=== PATIENT | male | born 1970 | race African-American/Black ===

== ENCOUNTER 2016-10-15 15:40 | Emergency (ER) | payer MEDICARE, OTHER ==
[~2016-10-15] VITALS: Ht 180.3 cm; Wt 84.0 kg
[2016-10-15 15:42] VITALS: BP 175/84; PULSE 67; RESP 18; TEMP 98.5; O2SAT 100
[2016-10-15] MEDS ORDERED: MIRT30TA PO (17:43)
[2016-10-15] MEDS ORDERED: RISP3TAB2 PO (17:43)
[2016-10-15] MEDS ORDERED: DIVA500T3 PO (17:43)
[2016-10-15] MEDS ORDERED: SODIUM CHLORID 0.9% 500 ML INJ 500 ML IV ONE (18:45)
[2016-10-15] MEDS ORDERED: SODIUM CHLORIDE 0.9% FLUSH 10 ML FLUSH IVF PRN (18:45)
--- NOTE | 2016-10-15 18:58 | RADRPT ---
EXAM DATE/TIME: 10/15/2016 18:49 [place] COMPARISON: No previous studies available for comparison. INDICATIONS : Chest pain MEDICAL HISTORY : None. SURGICAL HISTORY : None. ENCOUNTER: Initial ACUITY: 1 day PAIN SCORE: 5/10 LOCATION: Bilateral chest FINDINGS: A single view of the chest demonstrates the lungs to be symmetrically aerated without evidence of mas s, infiltrate or effusion. The cardiomediastinal contours are unremarkable. Osseous structures are intact. CONCLUSION: No evidence of acute cardiopulmonary disease. Connor Figueroa MD on October 15, 2016 at 18:56 Board Certified Radiologist. This report was verified electronically.
[2016-10-15 19:05] VITALS: RESP 20; O2SAT 96
--- NOTE | 2016-10-15 19:16 | PD ---
Physical Exam Narrative General: The patient is a well-developed well-nourished male in no acute distress. Head and Neck exam: Head is normocephalic atraumatic. Eyes: EOMI, pupils are equal round and reactive to light. Nose: Midline septum with pink mucous membranes Mouth: Dentition unremarkable. Moist mucus membranes. Posterior oropharynx is not erythematous. No tonsillar hypertrophy. Uvula midline. Airway patent. Neck: No palpable lymphadenopathy. No nuchal rigidity. No thyromegaly. Cardiovascular: Regular rate and rhythm without murmurs, gallops, or rubs. Lungs: Clear to auscultation bilaterally. No wheezes, rhonchi, or rales. Abdomen: Soft, without tenderness to palpation in all 4 quadrants of the abdomen. No guarding, rebound, or rigidity. Normal bowel sounds are audible. Extremities: No clubbing, cyanosis, or edema. 2+ pulses in all 4 extremities. No calf tenderness on palpation. No crepitus or deformity of the extremities. Neurologic Exam: Grossly nonfocal. Skin Exam: No rash noted. Intact skin that is warm and dry. Data Data Last Documented VS Vital Signs Date Time Temp Pulse Resp B/P Pulse Ox O2 Delivery O2 Flow Rate FiO2 10/15/16 19:28 65 115/66 124/70 10/15/16 19:05 20 96 Room Air 10/15/16 15:42 98.5 Orders Electrocardiogram (10/15/16 ) Electrocardiogram (10/15/16 18:39) Complete Blood Count With Diff (10/15/16 18:39) Comprehensive Metabolic Panel (10/15/16 18:39) Magnesium (Mg) (10/15/16 18:39) Troponin I (10/15/16 18:39) Chest, Single Ap (10/15/16 18:39) Ecg Monitoring (10/15/16 18:39) Bilateral Bp Monitoring (10/15/16 18:39) Iv Access Insert/Monitor (10/15/16 18:39) Oximetry (10/15/16 18:39) Oxygen Administration (10/15/16 18:39) Sodium Chloride 0.9% Flush (Ns Flush) (10/15/16 18:45) Sodium Chlorid 0.9% 500 Ml Inj (Ns 500 M (10/15/16 18:45) Labs Laboratory Tests Test 10/15/16 19:25 White Blood Count 7.4 TH/MM3 Red Blood Count 4.74 MIL/MM3 Hemoglobin 14.3 GM/DL Hematocrit 41.6 % Mean Corpuscular Volume 87.8 FL Mean Corpuscular Hemoglobin 30.2 PG Mean Corpuscular Hemoglobin 34.4 % Concent Red Cell Distribution Width 14.2 % Platelet Count 179 TH/MM3 Mean Platelet Volume 9.2 FL Neutrophils (%) (Auto) 56.5 % Lymphocytes (%) (Auto) 30.3 % Monocytes (%) (Auto) 7.0 % Eosinophils (%) (Auto) 5.3 % Basophils (%) (Auto) 0.9 % Neutrophils # (Auto) 4.2 TH/MM3 Lymphocytes # (Auto) 2.2 TH/MM3 Monocytes # (Auto) 0.5 TH/MM3 Eosinophils # (Auto) 0.4 TH/MM3 Basophils # (Auto) 0.1 TH/MM3 CBC Comment DIFF FINAL Differential Comment Sodium Level 141 MEQ/L Potassium Level 4.1 MEQ/L Chloride Level 107 MEQ/L Carbon Dioxide Level 27.5 MEQ/L Anion Gap 7 MEQ/L Blood Urea Nitrogen 13 MG/DL Creatinine 1.11 MG/DL Estimat Glomerular Filtration 71 ML/MIN Rate Random Glucose 83 MG/DL Calcium Level 8.9 MG/DL Magnesium Level 2.3 MG/DL Total Bilirubin 0.3 MG/DL Aspartate Amino Transf 26 U/L (AST/SGOT) Alanine Aminotransferase 29 U/L (ALT/SGPT) Alkaline Phosphatase 55 U/L Troponin I LESS THAN 0.02 NG/ML Total Protein 7.1 GM/DL Albumin 3.8 GM/DL [facility] Medical Record Reviewed: Yes Supervised Visit with ARNOLDO: No Interpretation(s) Last Impressions Chest X-Ray 10/15/16 6507 Signed Impressions: Service Date/Time: Saturday, October 15, 2016 18:49 - CONCLUSION: No evidence of acute cardiopulmonary disease. Connor Figueroa MD Narrative Course During the course of the patients emergency department visit, the patients history, examination, and differential diagnosis were reviewed with the patient. The patient had IV access obtained and blood work sent for analysis. The patient was placed on a panel monitor with oximetry and blood pressure monitoring. An EKG was done on arrival. The patient's case was checked out to me by who requested that I review the patient's laboratory studies. He suspected that the patient will be able to be discharged home to follow-up with his primary care physician. The patient has an appointment with his primary care physician scheduled for the morning. The patient reports to the emergency department with various complaints including headache, chest pain, increased anxiety. The patient reports that he recently underwent a stress test that was negative in August 2016. The patient was initially provided normal saline a 500 mL bolus 1. The patients laboratory studies were reviewed and remarkable for a white count of 7.4, hemoglobin 14.3, platelets 179 with 5.3 eosinophils, CMP is remarkable for a GFR of 71, troponin I less than 0.02 Radiology studies were reviewed and remarkable for a chest x-ray that shows no acute abnormality. The patient will be discharged home to follow-up with the patient's primary care physician. He reports that he has an appointment scheduled for the morning. The patient is resting comfortably and feels better, is alert and in no distress. The patients results and examination findings were discussed with the patient. The repeat examination is unremarkable and benign. The history, exam, diagnostic testing, and current condition do not suggest any significant pathology to warrant further testing, continued ED treatment, admission, or surgical evaluation at this point. The vital signs have been stable. The patient does not have uncontrollable pain, intractable vomiting, or other significant symptoms. The patient's condition is stable and appropriate for discharge. The patient will pursue further outpatient evaluation with a primary care physician or other designated or consulting physician as indicated in the discharge instructions. The patient expressed understanding and was agreeable with this plan. Diagnosis Primary Impression: Hypertension Qualified Code: I10 - Essential hypertension Additional Impressions: Chest pain Qualified Code: R07.9 - Chest pain, unspecified type Headache Qualified Code: R51 - Nonintractable headache, unspecified chronicity pattern , unspecified headache type Referrals: Primary Care Physician 1 day Patient Instructions: Chest Pain (ED), General Instructions, Hypertension (ED) Med/Other Pt SpecificInfo: No Change to Meds Disposition: 01 DISCHARGE HOME Condition: Stable Sherie Kimball MD Oct 15, 2016 19:16
--- NOTE | 2016-10-15 19:21 | PD ---
HPI Chief Complaint: Chest Pain Time Seen by Provider: 19:14 Travel History International Travel<30 days: No Contact w/Intl Traveler<30days: No Traveled to known affect area: No History of Present Illness HPI So 46-year-old male who presents to the emergency department complaining of chest pain, headache, left elbow pain. States symptoms have been ongoing for the past 2 days and are worse. This is third episode of similar symptoms in the past couple months. He states the chest pain is been on and off. No clear aggravating or alleviating factors. Because of this chest pain in the past he was sent to see a learning design specialist where he had an echo, stress treadmill stress test, all which was negative except for a leaky valve that they found. The headache is low. He's not had it with the previous episodes. Since be more in the back of the head and radiating around to the front. Review of systems is also notable for some occasional shortness of breath and dyspnea on exertion. No lower Lilly swelling. No change in his bowel movements. No abdominal symptoms. History Past Medical History Narrative Medical Depression "Leaky valve" Past Surgical History Surgical History: No Previous Surgery Social History Alcohol Use: Yes (twice a week, quit on ) Tobacco Use: Yes (>1/2 ppd) Allergies-Medications (Allergen,Severity, Reaction): Coded Allergies: No Known Allergies (Unverified , 10/15/16) Reported Meds & Prescriptions Reported Meds & Active Scripts Active Reported Risperidone 3 Mg Tab 6 Mg PO DAILY Mirtazapine 30 Mg Tab 30 Mg PO HS Divalproex ER (Divalproex Sodium) 500 Mg Tab 1,000 Mg PO DAILY Review of Systems Except as stated in HPI: all other systems reviewed are Neg Physical Exam Narrative GENERAL: Well-appearing 46-year-old man, no acute distress. SKIN: Focused skin assessment warm/dry. HEAD: Atraumatic. Normocephalic. CARDIOVASCULAR: Regular rate and rhythm. No murmur appreciated. RESPIRATORY: No accessory muscle use. Clear to auscultation. Breath sounds equal bilaterally. GASTROINTESTINAL: Abdomen soft, non-tender, nondistended. Hepatic and splenic margins not palpable. MUSCULOSKELETAL: No obvious deformities. No edema. NEUROLOGICAL: Awake and alert. No obvious cranial nerve deficits. Motor grossly within normal limits. Normal speech. PSYCHIATRIC: Appropriate mood and affect; insight and judgment normal. Data Data Last Documented VS Vital Signs Date Time Temp Pulse Resp B/P Pulse Ox O2 Delivery O2 Flow Rate FiO2 10/15/16 19:05 20 96 Room Air 10/15/16 15:42 98.5 67 175/84 Orders Electrocardiogram (10/15/16 ) Electrocardiogram (10/15/16 18:39) Complete Blood Count With Diff (10/15/16 18:39) Comprehensive Metabolic Panel (10/15/16 18:39) Magnesium (Mg) (10/15/16 18:39) Troponin I (10/15/16 18:39) Chest, Single Ap (10/15/16 18:39) Ecg Monitoring (10/15/16 18:39) Bilateral Bp Monitoring (10/15/16 18:39) Iv Access Insert/Monitor (10/15/16 18:39) Oximetry (10/15/16 18:39) Oxygen Administration (10/15/16 18:39) Sodium Chloride 0.9% Flush (Ns Flush) (10/15/16 18:45) Sodium Chlorid 0.9% 500 Ml Inj (Ns 500 M (10/15/16 18:45) MDM Medical Decision Making Medical Screen Exam Complete: Yes Emergency Medical Condition: Yes Differential Diagnosis Anxiety, ACS, arrhythmia, dissection, other Narrative Course Medical decision making INITIAL: This is a 46-year-old man who presents to the emergency department with a variety of unusual symptoms including chest pain and headache elbow pain. He's had these evaluated in the past and all it revealed is a leaky valve. He also describes some palpitations, and feeling his heart skip beats especially at night. The symptoms are more suggestive of an anxiety, on it. He looks overall very well. We'll check EKG, x-ray, labs, and outpatient follow -up with his primary physician. He has appointment scheduled tomorrow. He had a stress test about 2 months ago. Patient was signed out to the oncoming provider at 7 PM to follow-up on the results of diagnostic testing, and disposition, likely home. Disposition: 01 DISCHARGE HOME Condition: Stable Ankit Dale MD Oct 15, 2016 19:21
[2016-10-15 19:28] VITALS: BP_SYST 115; BP_SYST 124; BP_DIAS 66; BP_DIAS 70; PULSE 65
--- NOTE | 2016-10-15 19:32 | EKG ---
Date Performed: 10/15/2016 Time Performed: 16:22:29 PTAGE: 46 years EKG: Sinus rhythm NORMAL ECG NO PREVIOUS TRACING DOCTOR: Jermaine Ha Interpretating Date/Time 10/15/2016 19:31:31
[2016-10-15 19:42] LABS: AUTOMATED NEUTROPHIL # 4.2 TH/MM3 (1.8-7.7); BASOPHIL # 0.1 TH/MM3 (0-0.2); BASOPHIL % 0.9 % (0.0-2.0); EOSINOPHIL # 0.4 TH/MM3 (0-0.4); EOSINOPHIL % 5.3 % (0.0-4.0); HEMATOCRIT 41.6 % (39.0-51.0); HEMO FLAGS DIFF FINAL; LYMPH % 30.3 % (9.0-44.0); LYMPHOCYTE # 2.2 TH/MM3 (1.0-4.8); MEAN CELL VOLUME 87.8 FL (80.0-100.0); MEAN CORPUSCULAR HEMOGLOBIN 30.2 PG (27.0-34.0); MEAN CORPUSCULAR HGB CONC 34.4 % (32.0-36.0); NEUT % 56.5 % (16.0-70.0); PLATELET COUNT 179 TH/MM3 (150-450); RED BLOOD COUNT 4.74 MIL/MM3 (4.50-5.90); RED CELL DISTRIBUTION WIDTH 14.2 % (11.6-17.2); WHITE BLOOD COUNT 7.4 TH/MM3 (4.0-11.0)
[2016-10-15 19:51] LABS: ANION GAP 7 MEQ/L (5-15); AST (GOT) 26 U/L (15-37); BICARBONATE 27.5 MEQ/L (21.0-32.0); BLOOD UREA NITROGEN 13 MG/DL (7-18); CHLORIDE 107 MEQ/L (98-107); GLOMERULAR FILTRATION RATE 71 ML/MIN (>89); MAGNESIUM 2.3 MG/DL (1.5-2.5); POTASSIUM 4.1 MEQ/L (3.5-5.1); SODIUM (NA) 141 MEQ/L (136-145)
[2016-10-15 19:56] LABS: ALKALINE PHOSPHATASE 55 U/L (45-117); ALT (GPT) 29 U/L (12-78); TOTAL BILIRUBIN ADULT 0.3 MG/DL (0.2-1.0)
== END 2016-10-15 20:50 | disposition home or self-care (01) ==
LOC: NEPC 15:40
DX: I10 Essential (primary) hypertension (principal); R07.9 Chest pain, unspecified; R51 Headache; M25.522 Pain in left elbow; F17.200 Nicotine dependence, unspecified, uncomplicated
CPT/HCPCS: 71010; 80053; 83735; 84484; 85025; 93005; 96360; 99285; J7040